=== PATIENT | male | born 1990 | race Caucasian/White ===

== ENCOUNTER 2018-08-29 16:35 | Inpatient (IN) | payer OTHER ==
[2018-08-29 18:59] VITALS: BMI 17.4
[2018-08-29] MEDS ORDERED: MELATONIN 5 MG TABLETS PO PRN (22:00)
--- NOTE | 2018-08-29 22:38 | HP ---
Admission [facility] Chief Complaint: Seeking admission to Rehab. Allergies/Adverse Reactions: Allergies Allergy/AdvReac Type Severity Reaction Status Date / Time No Known Allergies Allergy Verified 08/29/18 20:11 History of Present Illness: 28 years old male with a history of heroin dependence is seeking admission to Rehab. Patient is court mandated by City Reception Manager [facility] Kaity Wheeler for a minimum of 28 days addiction treatment. He reports history of gastritis, asthma, depression and anxiety. He denies suicide attempt or suicidal ideation at this time. Patient reports that he was on Buprenorphine before he went to longterm for 2 months. Patient reports that after Rehab. he will reestablish therapy at [facility]. Exam Limitations: No Limitations - Ebola screening Have you traveled outside of the country in the last 21 days: No (N) Have you had contact with anyone from an Ebola affected area: No Have you been sick,other than usual withdrawal symptoms: No Do you have a fever: No - Review of Systems Constitutional: No Symptoms Reported EENT: reports: No Symptoms Reported Respiratory: reports: No Symptoms reported Cardiac: reports: No Symptoms Reported GI: reports: No Symptoms Reported : reports: No Symptoms Reported Musculoskeletal: reports: No Symptoms Reported Integumentary: reports: No Symptoms Reported Neuro: reports: No Symptoms reported Endocrine: reports: No Symptoms Reported Hematology: reports: No Symptoms Reported Psychiatric: reports: No Sypmtoms Reported, Mood/Affect Appropiate, Orientated x3 Other Systems: Reviewed and Negative Patient History - Patient Medical History Hx Anemia: No Hx Asthma: Yes (Not on medication) Hx Chronic Obstructive Pulmonary Disease (COPD): No Hx Cancer: No Hx Cardiac Disorders: No Hx Congestive Heart Failure: No Hx Hypertension: No Hx Hypercholesterolemia: No Hx Pacemaker: No HX Cerebrovascular Accident: No Hx Seizures: No Hx Dementia: No Hx Diabetes: No Hx Gastrointestinal Disorders: Yes (Gastritis - Not on medication) Hx Liver Disease: No Hx Genitourinary Disorders: No Hx Sexually Transmitted Disorders: No Hx Renal Disease (ESRD): No Hx Thyroid Disease: No Hx Human Immunodeficiency Virus (HIV): No (NEGATIVE 2018) Hx Hepatitis C: No Hx Depression: Yes (Not on medicvation) Hx Suicide Attempt: No Hx Bipolar Disorder: Yes Hx Schizophrenia: No Other Medical History: Anxiety - Not on medication - Patient Surgical History Past Surgical History: Yes Hx Neurologic Surgery: No Hx Cataract Extraction: No Hx Cardiac Surgery: No Hx Lung Surgery: No Hx Breast Surgery: No Hx Breast Biopsy: No Hx Abdominal Surgery: No Hx Appendectomy: Yes ([place] 12/2013) Hx Cholecystectomy: No Hx Genitourinary Surgery: No Hx Orthopedic Surgery: No Anesthesia Reaction: No - PPD History Documented Results: Negative w/proof Implanted On Prior [facility] Admission?: Yes Date: 07/26/16 Results: 0 MM PPD to be Administered?: Yes - Reproductive History Patient is a Female of Child Bearing Age (11 -55 yrs old): No (Male) - Smoking Cessation Smoking history: Current every day smoker Have you smoked in the past 12 months: Yes Aproximately how many cigarettes per day: 8 Cigars Per Day: 0 Hx Chewing Tobacco Use: No Initiated information on smoking cessation: Yes 'Breaking Loose' booklet given: 08/25/18 - Substance & Tx. History Hx Alcohol Use: No Hx Substance Use: Yes Substance Use Type: Heroin Hx Substance Use Treatment: Yes ([facility]) - Substances Abused Heroin Route: Injection Frequency: Daily Amount used: 10bags Age of first use: 19 Date of Last Use: 06/07/18 Family Disease History - Family Disease History Family Disease History: Respiratory: Grandparent, Other: Father (living, arthritis), Mother (living, thyroid) Admission Physical Exam [facility] - Vital Signs Vital Signs: Vital Signs - 24 hr 08/29/18 18:57 Temperature 97.7 F Pulse Rate 96 H Respiratory 18 Rate Blood Pressure 140/98 - Physical General Appearance: Yes: Within Normal Limits HEENTM: Yes: EOMI, Normal ENT Inspection, Normocephalic, Normal Voice, EL Respiratory: Yes: Lungs Clear, Normal Breath Sounds, No Respiratory Distress Neck: Yes: Supple Breast: Yes: Breast Exam Deferred Cardiology: Yes: Regular Rhythm, Regular Rate Abdominal: Yes: Normal Bowel Sounds Genitourinary: Yes: Within Normal Limits Back: Yes: Normal Inspection Musculoskeletal: Yes: Within Normal Limits Extremities: Yes: Normal Inspection Neurological: Yes: consultative sales associate II-XII NML intact, Alert, Normal Mood/Affect Integumentary: Yes: Warm Lymphatic: Yes: Within Normal Limits - Diagnostic (1) Anxiety Current Visit: Yes Status: Chronic (2) Gastritis Current Visit: Yes Status: Chronic (3) Depression Current Visit: Yes Status: Chronic Qualifiers: Depression Type: dysthymia Qualified Code(s): F34.1 - Dysthymic disorder (4) Nicotine dependence Current Visit: Yes Status: Chronic Qualifiers: Nicotine product type: cigarettes Substance use status: uncomplicated Qualified Code(s): F17.210 - Nicotine dependence, cigarettes, uncomplicated Comment: counseled nicotine cessation - not ready but is trying to cut down (5) Opioid dependence Current Visit: Yes Status: Chronic Qualifiers: Substance use status: uncomplicated Qualified Code(s): F11.20 - Opioid dependence, uncomplicated Comment: cont suboxone 8mg bid, needs labwork, to continue drug court and [facility], (6) Asthma Current Visit: Yes Status: Chronic Cleared for Admission [facility] - Detox or Rehab [facility] Level of Care: Observation Bed Claeared for Rehab Admission: Yes [facility] Breath Alcohol Content Breath Alcohol Content: 0 Urine Drug Screen - Results Drug Screen Negative: Yes Inpatient Rehab Admission - Initial Determination Are CD services needed?: Yes Free of communicable disease: Yes Not in need of hospitalization: Yes - Rehab Admission Criteria Previous failed treatment: Yes Poor recovery environment: Yes Comorbidities: Yes Lacks judgement: No Patient is meeting Inpatient Rehab admission criteria:: Yes
[2018-08-29] MEDS ORDERED: MENTHOL/PHENOL 1 EACH UD MM PRN (22:50)
[2018-08-29] MEDS ORDERED: NICOTINE POLACRILEX 2 MG GUM BC PRN (22:50)
[2018-08-29] MEDS ORDERED: ACETAMINOPHEN 325 MG TABLET (FP) PO PRN (22:50)
[2018-08-29] MEDS ORDERED: MAGNESIUM CITRATE 300 ML BOTTLE PO PRN (22:50)
[2018-08-29] MEDS ORDERED: LOPERAMIDE HCL 2 MG CAPSULE PO PRN (22:50)
[2018-08-29] MEDS ORDERED: P-EPHED 60MG/TRIPROLIDI 2.5MG TABLET PO PRN (22:50)
[2018-08-29] MEDS ORDERED: guaiFENesin/D-METHORPHAN HB 10 ML UNIT-DOSE CUPS PO PRN (22:50)
[2018-08-29] MEDS ORDERED: MAGNESIUM HYDROX 2400MG/30ML ORAL SUSPENSION 30 ML CUP PO PRN (22:50)
[2018-08-29] MEDS ORDERED: MAG HYDROX/AL HYDROX/SIMETH 30 ML UNIT-DOSE CUP PO PRN (22:50)
[2018-08-30] MEDS ORDERED: TUBERCULIN PPD 5 TU/0.1ML VIAL ID ONE (00:34)
[2018-08-30] MEDS: IBUPROFEN 400 MG TABLET (FP) PO PRN (06:06)
[2018-08-30] MEDS: NICOTINE 14 MG/24 HOURS TOPICAL PATCH TD SCH (09:38)
[2018-08-30] MEDS: PRENATAL VITAMINS W/ FOLIC ACID TABLET (FP) PO SCH (09:38)
[2018-08-30 10:24] LABS: HEMATOCRIT 47.2 % (35.4-49); HEMOGLOBIN 15.5 GM/dL (11.7-16.9); MCH 31.6 pg (25.7-33.7); MCHC 32.9 g/dl (32.0-35.9); MEAN CELL VOLUME 95.9 fl (80-96); PLATELET COUNT 226 K/MM3 (134-434); RBC 4.92 M/mm3 (4.00-5.60); RDW 14.9 % (11.9-15.9); WHITE BLOOD COUNT 10.4 K/mm3 (4.0-10.0)
[2018-08-30 10:32] LABS: URINE APPEARANCE CLEAR; URINE BILIRUBIN NEGATIVE (<2.0 mg/dL); URINE COLOR YELLOW; URINE GLUCOSE (UA) NEGATIVE (NEGATIVE); URINE KETONE NEGATIVE (NEGATIVE); URINE LEUK ESTERASE NEGATIVE (NEGATIVE); URINE NITRITE NEGATIVE (NEGATIVE); URINE PROTEIN NEGATIVE (NEGATIVE); URINE UROBILINOGEN NEGATIVE mg/dL (0.2-1.0)
[2018-08-30 11:27] LABS: ALBUMIN 4.5 g/dl (3.4-5.0); ALK PHOS 152 U/L (45-117); ANION GAP 10 MMOL/L (8-16); BILIRUBIN,TOTAL 0.8 mg/dL (0.2-1); BLOOD UREA NITROGEN 9 mg/dL (7-18); CALCIUM 9.1 mg/dL (8.5-10.1); CHLORIDE 107 mmol/L (98-107); CO2 28 mmol/L (21-32); CREATININE 0.8 mg/dL (0.55-1.3); GLUCOSE,RANDOM 62 mg/dL (74-106); POTASSIUM 4.3 mmol/L (3.5-5.1); SGOT/AST 23 U/L (15-37); SGPT/ALT 39 U/L (13-61); SODIUM 145 mmol/L (136-145); TOT PROT 7.8 g/dl (6.4-8.2)
--- NOTE | 2018-08-30 12:59 | EKG ---
Test Reason : Blood Pressure : / mmHG Vent. Rate : 126 BPM Atrial Rate : 126 BPM P-R Int : 136 ms QRS Dur : 084 ms QT Int : 300 ms P-R-T Axes : 075 076 043 degrees QTc Int : 434 ms SINUS TACHYCARDIA OTHERWISE NORMAL ECG Confirmed by MD GEENA, ANDRE ([id number]) on 08/30/2018 12:58:53 PM Referred By: Confirmed By:ANDRE SEAY MD
--- NOTE | 2018-08-30 13:59 | HP ---
Psychiatrist Admission - Data Date of interview: 08/30/18 Admission source: Court mandated Identifying data: This is the second [facility] Inpatient rehabilitation admission martin this 28 years old single male, unemployed, domiciled living with his girlfriend Medical History: Significant for bronchial asthma, gastritis and history of appendectomy in 2013. Smokes 8 cigarettes daily Psychiatric History: Reports being diagnosed with ADHD and OCD as child and was prescribed Ritalin in the past. Reports that he was diagnosed with Bipolar Disorder in Aug 2014 and was prescribed Seroquel 300 mg po HS and Trazadone 150 mg po HS. Denies previous psychiatric hospitalization or suicidal attempt. Reports that while incarcerated at [facility] in [place] for the past 45 days, he saw a psychiatrist and he was prescribed Remeron 30 mhg po HS and Buspar 15 mg po BID. Told copy writer that he was released yesterday and brought to this facility for inpatient rehab. At present, reports feeling anxious and sleeping poorly Physical/Sexual Abuse/Trauma History: Denies history of emotional, physical or sexual abuse as well as DV relationship. No service Additional Comment: Reports history of mutiple previous arrests. Presently in drug court Vital Signs: Vital Signs - 24 hr 08/29/18 08/30/18 08/30/18 18:57 03:30 06:37 Temperature 97.7 F 97.6 F Pulse Rate 96 H 78 Respiratory 18 18 18 Rate Blood Pressure 140/98 115/75 Allergies/Adverse Reactions: Allergies Allergy/AdvReac Type Severity Reaction Status Date / Time No Known Allergies Allergy Verified 08/29/18 20:11 Date of last physical exam: 08/29/18 Concur with the findings of this exam: Yes - Substance Abuse/Tx History Hx Alcohol Use: No Hx Substance Use: Yes Substance Use Type: Heroin (Started using heroin at age 19, consumes 10 bags daily. Last used on 06/07/18) Hx Substance Use Treatment: Yes (3 previous inpt detox & one inpt rehab admissions @ [facility]) Mental Status Exam - Mental Status Exam Alert and Oriented to: Time, Place, Person Cognitive Function: Fair Patient Appearance: Well Groomed Mood: Anxious Affect: Appropriate Patient Behavior: Cooperative Speech Pattern: Clear Voice Loudness: Normal Thought Process: Intact, Goal Oriented Hallucinations: Denies Suicidal Ideation: Denies Homicidal Ideation: Denies Insight/Judgement: Fair Sleep: Poorly Appetite: Good Muscle strength/Tone: Normal Gait/Station: Normal Psychiatric Findings - Problem List ([place] 1, 2,3) (1) ADHD (attention deficit hyperactivity disorder) Current Visit: Yes Status: Chronic (2) Mood disorder Current Visit: Yes Status: Chronic (3) Bipolar disorder Current Visit: Yes Status: Ruled-out (4) Substance-induced anxiety disorder Current Visit: Yes Status: Acute (5) Substance-induced sleep disorder Current Visit: Yes Status: Acute (6) Opioid dependence Current Visit: Yes Status: Acute (7) Nicotine dependence Current Visit: Yes Status: Chronic Qualifiers: Nicotine product type: cigarettes Substance use status: uncomplicated Qualified Code(s): F17.210 - Nicotine dependence, cigarettes, uncomplicated Comment: counseled nicotine cessation - not ready but is trying to cut down (8) Asthma Current Visit: Yes Status: Chronic (9) Gastritis Current Visit: Yes Status: Chronic - Initial Treatment Plan Initial Treatment Plan: 1) Continue Mirtazapine 30 mg po HS and Buspar 15 mg po BID. 2) Monitor progress
[2018-08-30] MEDS: THIAMINE HCL 100 MG TABLET (FP) PO SCH (21:07)
[2018-08-30] MEDS: busPIRone HCL 5 MG TABLET PO SCH (21:07)
[2018-08-30] MEDS: MIRTAZAPINE 30 MG TABLET (FP) PO SCH (21:07)
[2018-08-31] MEDS: busPIRone HCL 5 MG TABLET PO SCH ×2 (09:53→21:09)
[2018-08-31] MEDS: PRENATAL VITAMINS W/ FOLIC ACID TABLET (FP) PO SCH (09:53)
[2018-08-31] MEDS: NICOTINE 14 MG/24 HOURS TOPICAL PATCH TD SCH (09:54)
--- NOTE | 2018-08-31 10:18 | PN ---
[facility] COWS - Scale Resting Pulse: 0= IN 80 or Below Sweatin= No chills or Flushing Restless Observation: 3= Extraneous Movement Pupil Size: 0= Normal to Room Light Bone or Joint Aches: 0= None Runny Nose/ Eye Tearin= None GI Upset > 30mins: 0= None Tremor Observation of Outstretched Hands: 2= Slight Tremor Visible Yawning Observation: 1= 1-2x During Session Anxiety or Irritability: 2=Irritable/Anxious Goose Flesh Skin: 0=Smooth Skin COWS Score: 8 BHS Progress Note (SOAP) Subjective: PT WAS ADMITTED ON 08/29/18, BROUGHT IN BY MR RODRIGUEZ AND MANDATED BY [facility]. PT WAS RECENTLY RELEASED FROM PRISON FROM JUL 22 - AUGUST 29, 2018. PT WAS PREVIOUSLY ON SUBOXONE PROGRAM AT [facility], LAST IN June. PT STATES HE WANTS TO GO BACK ON SUBOXONE AND THAT HE IS RECOMMENDED TO BE ON IT BY THE COURT. PT WILL BE GOING BACK TO [facility] FOR AFTER CARE AFTER REHAB TREATMENT PER PATIENT'S COUNSELOR, MS ROACHNNE. DISCUSSED WITH Carmenza GALVAN, PhD,SPECIAL TECHNICAL OPERATIONS OFFICER AT [facility] WHO WILL BE PRESCRIBER FOR THIS PATIENT. PT STATES HE WAS ON SUBOXONE 8MG/2MG SL 1 FILM TWICE DAILY. MEANWHILE, PT REPORTS INCREASED CRAVINGS AND STATES "I JUST WANT TO GO USE". ALERT O X 3. OOB AND IN NAD. Objective: 08/31/18 10:18 Vital Signs 08/31/18 08/31/18 03:30 06:54 Respiratory 18 18 Rate EKG:NSR NORMAL ECG Assessment: 08/31/18 10:19 IMPRESSION:MAT Plan: START SUBOXONE 2MG/0.5 MG SL NOW. RE-EVALUATE FOR ADJUSTMENT OF DOSE.
[2018-08-31] MEDS ORDERED: BUPRENORPHINE/NALOXONE 2 MG/0.5 MG FILM PACKET SL ONE (10:23)
--- NOTE | 2018-08-31 15:14 | EKG ---
Test Reason : Blood Pressure : / mmHG Vent. Rate : 079 BPM Atrial Rate : 079 BPM P-R Int : 132 ms QRS Dur : 088 ms QT Int : 368 ms P-R-T Axes : 074 066 056 degrees QTc Int : 421 ms NORMAL SINUS RHYTHM NORMAL ECG WHEN COMPARED WITH ECG OF 29-AUG-2018 23:45, VENT. RATE HAS DECREASED BY 47 BPM Confirmed by ALISE VAZQUEZ MD ([id number]) on 08/31/2018 3:14:39 PM Referred By: Confirmed By:ALISE VAZQUEZ MD
[2018-08-31] MEDS: IBUPROFEN 400 MG TABLET (FP) PO PRN (18:23)
[2018-08-31] MEDS: THIAMINE HCL 100 MG TABLET (FP) PO SCH (21:08)
[2018-08-31] MEDS: MIRTAZAPINE 30 MG TABLET (FP) PO SCH (21:09)
[2018-09-01] MEDS: PRENATAL VITAMINS W/ FOLIC ACID TABLET (FP) PO SCH (09:45)
[2018-09-01] MEDS: busPIRone HCL 5 MG TABLET PO SCH ×2 (09:45→21:14)
[2018-09-01] MEDS: NICOTINE 14 MG/24 HOURS TOPICAL PATCH TD SCH (09:46)
--- NOTE | 2018-09-01 09:56 | PN ---
BHS COWS - Scale Resting Pulse: 0= [place] 80 or Below Sweatin= No chills or Flushing Restless Observation: 3= Extraneous Movement (at night) Pupil Size: 0= Normal to Room Light Bone or Joint Aches: 0= None Runny Nose/ Eye Tearin= None GI Upset > 30mins: 0= None Tremor Observation of Outstretched Hands: 1= Tremor [place], Not Seen Yawning Observation: 0= None Anxiety or Irritability: 1=Feels Anxious/Irritable Goose Flesh Skin: 0=Smooth Skin COWS Score: 5 BHS Progress Note (SOAP) Subjective: PT REPORTS HE FEELS MUCH BETTER TODAT(SEE COWS SCORE). WANTS TO BE KEPT ON CURRENT DOSE TILL AFTER THE WEEKEND BUT WILL INFORM STAFF OF SYMPTOMS THAT WILL NECESSITATE INCREASED DOSE. PT HAS BEEN INSTRUCTED ON SAME. Objective: 09/01/18 09:56 Vital Signs - 24 hr 09/01/18 09/01/18 09/01/18 00:30 03:30 06:56 Temperature Pulse Rate Respiratory 18 18 18 Rate Blood Pressure 09/01/18 08:58 Temperature 97.6 F Pulse Rate 78 Respiratory 17 Rate Blood Pressure 112/82 Assessment: 09/01/18 09:56 MAT Plan: CONTINUE 2MG AND RE-EVALUATE PT FOR DOSE INCREASE.
[2018-09-01] MEDS: BUPRENORPHINE/NALOXONE 2 MG/0.5 MG FILM PACKET SL SCH (10:14)
[2018-09-01] MEDS: MIRTAZAPINE 30 MG TABLET (FP) PO SCH (21:13)
[2018-09-01] MEDS: THIAMINE HCL 100 MG TABLET (FP) PO SCH (21:13)
[2018-09-01] MEDS: SELENIUM SULFIDE 2.5% LOTION 4 OZ. TP SCH (23:16)
[2018-09-02] MEDS: BUPRENORPHINE/NALOXONE 2 MG/0.5 MG FILM PACKET SL SCH (09:44)
[2018-09-02] MEDS: busPIRone HCL 5 MG TABLET PO SCH ×2 (09:44→21:32)
[2018-09-02] MEDS: PRENATAL VITAMINS W/ FOLIC ACID TABLET (FP) PO SCH (09:44)
[2018-09-02] MEDS: NICOTINE 14 MG/24 HOURS TOPICAL PATCH TD SCH (09:45)
[2018-09-02] MEDS: SELENIUM SULFIDE 2.5% LOTION 4 OZ. TP SCH (09:45)
--- NOTE | 2018-09-02 13:54 | PN ---
BHS Progress Note Note: PT REPORTS DISCOMFORT AND HAS CRAVINGS OF URGE TO USE. HE IS REQUESTING FOR AND INCREASE IN SUBOXONE DOSE. CURRENTLY ON 2MG. Vital Signs - 24 hr 09/02/18 09/02/18 09/02/18 00:30 03:30 06:46 Temperature 98.0 F Pulse Rate 76 Respiratory 19 18 18 Rate Blood Pressure 104/74 PLAN:WILL INCREASE TO 4MG SL DAILY.
[2018-09-02] MEDS ORDERED: BUPRENORPHINE/NALOXONE 2 MG/0.5 MG FILM PACKET SL SCH (13:55)
[2018-09-02] MEDS ORDERED: BUPRENORPHINE/NALOXONE 2 MG/0.5 MG FILM PACKET SL ONE (14:00)
[2018-09-02] MEDS: THIAMINE HCL 100 MG TABLET (FP) PO SCH (21:32)
[2018-09-02] MEDS: MIRTAZAPINE 30 MG TABLET (FP) PO SCH (21:32)
[2018-09-03] MEDS: BUPRENORPHINE/NALOXONE 2 MG/0.5 MG FILM PACKET SL SCH (09:44)
[2018-09-03] MEDS: PRENATAL VITAMINS W/ FOLIC ACID TABLET (FP) PO SCH (09:44)
[2018-09-03] MEDS: SELENIUM SULFIDE 2.5% LOTION 4 OZ. TP SCH (09:44)
[2018-09-03] MEDS: busPIRone HCL 5 MG TABLET PO SCH ×2 (09:44→21:08)
[2018-09-03] MEDS: NICOTINE 14 MG/24 HOURS TOPICAL PATCH TD SCH (09:46)
[2018-09-03] MEDS: MIRTAZAPINE 30 MG TABLET (FP) PO SCH (21:08)
[2018-09-03] MEDS: THIAMINE HCL 100 MG TABLET (FP) PO SCH (21:08)
[2018-09-04] MEDS: PRENATAL VITAMINS W/ FOLIC ACID TABLET (FP) PO SCH (09:25)
[2018-09-04] MEDS: NICOTINE 14 MG/24 HOURS TOPICAL PATCH TD SCH (09:25)
[2018-09-04] MEDS: BUPRENORPHINE/NALOXONE 2 MG/0.5 MG FILM PACKET SL SCH (09:25)
[2018-09-04] MEDS: busPIRone HCL 5 MG TABLET PO SCH ×2 (09:25→21:15)
[2018-09-04] MEDS: SELENIUM SULFIDE 2.5% LOTION 4 OZ. TP SCH (09:25)
[2018-09-04] MEDS: THIAMINE HCL 100 MG TABLET (FP) PO SCH (21:14)
[2018-09-04] MEDS: MIRTAZAPINE 30 MG TABLET (FP) PO SCH (21:15)
[2018-09-05] MEDS: BUPRENORPHINE/NALOXONE 2 MG/0.5 MG FILM PACKET SL SCH (10:08)
[2018-09-05] MEDS: busPIRone HCL 5 MG TABLET PO SCH ×2 (10:08→21:15)
[2018-09-05] MEDS: PRENATAL VITAMINS W/ FOLIC ACID TABLET (FP) PO SCH (10:08)
[2018-09-05] MEDS: SELENIUM SULFIDE 2.5% LOTION 4 OZ. TP SCH (10:09)
[2018-09-05] MEDS: NICOTINE 14 MG/24 HOURS TOPICAL PATCH TD SCH (10:09)
[2018-09-05] MEDS: MIRTAZAPINE 30 MG TABLET (FP) PO SCH (21:15)
[2018-09-05] MEDS: THIAMINE HCL 100 MG TABLET (FP) PO SCH (21:15)
[2018-09-06] MEDS: busPIRone HCL 5 MG TABLET PO SCH ×2 (10:04→21:07)
[2018-09-06] MEDS: NICOTINE 14 MG/24 HOURS TOPICAL PATCH TD SCH (10:04)
[2018-09-06] MEDS: BUPRENORPHINE/NALOXONE 2 MG/0.5 MG FILM PACKET SL SCH (10:04)
[2018-09-06] MEDS: PRENATAL VITAMINS W/ FOLIC ACID TABLET (FP) PO SCH (10:04)
[2018-09-06] MEDS: SELENIUM SULFIDE 2.5% LOTION 4 OZ. TP SCH (10:05)
[2018-09-06] MEDS: MIRTAZAPINE 30 MG TABLET (FP) PO SCH (21:06)
[2018-09-06] MEDS: THIAMINE HCL 100 MG TABLET (FP) PO SCH (21:06)
[2018-09-07] MEDS: BUPRENORPHINE/NALOXONE 2 MG/0.5 MG FILM PACKET SL SCH (09:51)
[2018-09-07] MEDS: SELENIUM SULFIDE 2.5% LOTION 4 OZ. TP SCH (09:51)
[2018-09-07] MEDS: busPIRone HCL 5 MG TABLET PO SCH ×2 (09:51→21:13)
[2018-09-07] MEDS: PRENATAL VITAMINS W/ FOLIC ACID TABLET (FP) PO SCH (09:51)
[2018-09-07] MEDS: NICOTINE 14 MG/24 HOURS TOPICAL PATCH TD SCH (09:51)
[2018-09-07] MEDS: THIAMINE HCL 100 MG TABLET (FP) PO SCH (21:12)
[2018-09-07] MEDS: MIRTAZAPINE 30 MG TABLET (FP) PO SCH (21:13)
[2018-09-08] MEDS: PRENATAL VITAMINS W/ FOLIC ACID TABLET (FP) PO SCH (10:06)
[2018-09-08] MEDS: busPIRone HCL 5 MG TABLET PO SCH ×2 (10:06→21:07)
[2018-09-08] MEDS: SELENIUM SULFIDE 2.5% LOTION 4 OZ. TP SCH (10:08)
[2018-09-08] MEDS ORDERED: BUPRENORPHINE/NALOXONE 2 MG/0.5 MG FILM PACKET SL SCH (10:45)
[2018-09-08] MEDS: NICOTINE 14 MG/24 HOURS TOPICAL PATCH TD SCH (11:07)
[2018-09-08] MEDS: MIRTAZAPINE 30 MG TABLET (FP) PO SCH (21:07)
[2018-09-08] MEDS: THIAMINE HCL 100 MG TABLET (FP) PO SCH (21:07)
--- NOTE | 2018-09-09 09:42 | PN ---
[facility] Progress Note Note: PT WAS SEEN TODAY AND HE REQUESTS HE WANTS A BUILD UP TO 8 MG. PT HAD BEEN ON 8MG/2MG 2 FILMS DAILY BEFORE COMING HERE TO REHAB. Vital Signs - 24 hr 09/09/18 09/09/18 09/09/18 00:30 03:30 07:59 Temperature 97.8 F Pulse Rate 84 Respiratory 18 18 16 Rate Blood Pressure 112/71 Laboratory Tests 08/30/18 08/30/18 08/30/18 07:00 07:00 07:00 WBC 10.4 H RBC 4.92 Hgb 15.5 Hct 47.2 D MCV 95.9 MCH 31.6 MCHC 32.9 RDW 14.9 Plt Count 226 MPV 9.0 Sodium 145 Potassium 4.3 Chloride 107 Carbon Dioxide 28 Anion Gap 10 BUN 9 Creatinine 0.8 Creat Clearance w eGFR > 60 Random Glucose 62 L Calcium 9.1 Total Bilirubin 0.8 AST 23 ALT 39 Alkaline Phosphatase 152 H Total Protein 7.8 Albumin 4.5 Urine Color Urine Appearance Urine pH Ur Specific [place] Urine Protein Urine Glucose (UA) Urine Ketones Urine Blood Urine Nitrite Urine Bilirubin Urine Urobilinogen Ur Leukocyte Esterase RPR Titer Nonreactive 08/30/18 07:00 WBC RBC Hgb Hct MCV MCH MCHC RDW Plt Count MPV Sodium Potassium Chloride Carbon Dioxide Anion Gap BUN Creatinine Creat Clearance w eGFR Random Glucose Calcium Total Bilirubin AST ALT Alkaline Phosphatase Total Protein Albumin Urine Color Yellow Urine Appearance Clear Urine pH 6.0 Ur Specific [place] 1.024 Urine Protein Negative Urine Glucose (UA) Negative Urine Ketones Negative Urine Blood Negative Urine Nitrite Negative Urine Bilirubin Negative Urine Urobilinogen Negative Ur Leukocyte Esterase Negative RPR Titer NAD PLAN:INCREASE TO SUBOXONE 8 MG/2 MG SL DAILY.
[2018-09-09] MEDS: NICOTINE 14 MG/24 HOURS TOPICAL PATCH TD SCH (10:04)
[2018-09-09] MEDS: busPIRone HCL 5 MG TABLET PO SCH ×2 (10:04→21:07)
[2018-09-09] MEDS: PRENATAL VITAMINS W/ FOLIC ACID TABLET (FP) PO SCH (10:04)
[2018-09-09] MEDS: BUPRENORPHINE/NALOXONE 8 MG/2 MG FILM PACKET SL SCH (10:26)
[2018-09-09] MEDS: THIAMINE HCL 100 MG TABLET (FP) PO SCH (21:07)
[2018-09-09] MEDS: MIRTAZAPINE 30 MG TABLET (FP) PO SCH (21:07)
[2018-09-10] MEDS: PRENATAL VITAMINS W/ FOLIC ACID TABLET (FP) PO SCH (09:25)
[2018-09-10] MEDS: busPIRone HCL 5 MG TABLET PO SCH ×2 (09:25→21:07)
[2018-09-10] MEDS: NICOTINE 14 MG/24 HOURS TOPICAL PATCH TD SCH (09:25)
[2018-09-10] MEDS: BUPRENORPHINE/NALOXONE 8 MG/2 MG FILM PACKET SL SCH (09:25)
[2018-09-10] MEDS: MIRTAZAPINE 30 MG TABLET (FP) PO SCH (21:07)
[2018-09-10] MEDS: THIAMINE HCL 100 MG TABLET (FP) PO SCH (21:07)
[2018-09-11] MEDS: busPIRone HCL 5 MG TABLET PO SCH ×2 (09:31→21:06)
[2018-09-11] MEDS: BUPRENORPHINE/NALOXONE 8 MG/2 MG FILM PACKET SL SCH (09:31)
[2018-09-11] MEDS: PRENATAL VITAMINS W/ FOLIC ACID TABLET (FP) PO SCH (09:31)
[2018-09-11] MEDS: NICOTINE 14 MG/24 HOURS TOPICAL PATCH TD SCH (09:31)
[2018-09-11] MEDS: SELENIUM SULFIDE 2.5% LOTION 4 OZ. TP SCH (15:29)
[2018-09-11] MEDS: MIRTAZAPINE 30 MG TABLET (FP) PO SCH (21:06)
[2018-09-11] MEDS: THIAMINE HCL 100 MG TABLET (FP) PO SCH (21:06)
[2018-09-12] MEDS: PRENATAL VITAMINS W/ FOLIC ACID TABLET (FP) PO SCH (09:57)
[2018-09-12] MEDS: busPIRone HCL 5 MG TABLET PO SCH ×2 (09:57→21:02)
[2018-09-12] MEDS: BUPRENORPHINE/NALOXONE 8 MG/2 MG FILM PACKET SL SCH (09:57)
[2018-09-12] MEDS: SELENIUM SULFIDE 2.5% LOTION 4 OZ. TP SCH (09:58)
[2018-09-12] MEDS: NICOTINE 14 MG/24 HOURS TOPICAL PATCH TD SCH (09:58)
[2018-09-12] MEDS: MIRTAZAPINE 30 MG TABLET (FP) PO SCH (21:02)
[2018-09-12] MEDS: THIAMINE HCL 100 MG TABLET (FP) PO SCH (21:02)
[2018-09-13] MEDS ORDERED: PT OWN MED DRAWER 7, Y5N ONE (08:47)
[2018-09-13] MEDS: busPIRone HCL 5 MG TABLET PO SCH ×2 (10:05→21:07)
[2018-09-13] MEDS: NICOTINE 14 MG/24 HOURS TOPICAL PATCH TD SCH (10:05)
[2018-09-13] MEDS: SELENIUM SULFIDE 2.5% LOTION 4 OZ. TP SCH (10:05)
[2018-09-13] MEDS: PRENATAL VITAMINS W/ FOLIC ACID TABLET (FP) PO SCH (10:05)
[2018-09-13] MEDS: BUPRENORPHINE/NALOXONE 8 MG/2 MG FILM PACKET SL SCH (10:06)
[2018-09-13] MEDS: MIRTAZAPINE 30 MG TABLET (FP) PO SCH (21:07)
[2018-09-13] MEDS: THIAMINE HCL 100 MG TABLET (FP) PO SCH (21:07)
[2018-09-14] MEDS: PRENATAL VITAMINS W/ FOLIC ACID TABLET (FP) PO SCH (09:48)
[2018-09-14] MEDS: SELENIUM SULFIDE 2.5% LOTION 4 OZ. TP SCH (09:48)
[2018-09-14] MEDS: busPIRone HCL 5 MG TABLET PO SCH ×2 (09:48→21:10)
[2018-09-14] MEDS: BUPRENORPHINE/NALOXONE 8 MG/2 MG FILM PACKET SL SCH (09:48)
[2018-09-14] MEDS: NICOTINE 14 MG/24 HOURS TOPICAL PATCH TD SCH (10:52)
--- NOTE | 2018-09-14 11:22 | PN ---
B[facility] Progress Note Note: Pt requesting tinactin cream for athletes feet- done
[2018-09-14] MEDS: THIAMINE HCL 100 MG TABLET (FP) PO SCH (21:10)
[2018-09-14] MEDS: MIRTAZAPINE 30 MG TABLET (FP) PO SCH (21:11)
[2018-09-14] MEDS: TOLNAFTATE 1% CREAM 15 GM TUBE TP SCH (21:12)
[2018-09-15] MEDS: PRENATAL VITAMINS W/ FOLIC ACID TABLET (FP) PO SCH (10:02)
[2018-09-15] MEDS: busPIRone HCL 5 MG TABLET PO SCH ×2 (10:02→21:07)
[2018-09-15] MEDS: TOLNAFTATE 1% CREAM 15 GM TUBE TP SCH ×2 (10:02→21:08)
[2018-09-15] MEDS: BUPRENORPHINE/NALOXONE 8 MG/2 MG FILM PACKET SL SCH (10:02)
[2018-09-15] MEDS: NICOTINE 14 MG/24 HOURS TOPICAL PATCH TD SCH (10:02)
[2018-09-15] MEDS: SELENIUM SULFIDE 2.5% LOTION 4 OZ. TP SCH (10:03)
[2018-09-15] MEDS: MIRTAZAPINE 30 MG TABLET (FP) PO SCH (21:07)
[2018-09-15] MEDS: THIAMINE HCL 100 MG TABLET (FP) PO SCH (21:07)
[2018-09-16] MEDS: busPIRone HCL 5 MG TABLET PO SCH ×2 (09:39→21:06)
[2018-09-16] MEDS: PRENATAL VITAMINS W/ FOLIC ACID TABLET (FP) PO SCH (09:39)
[2018-09-16] MEDS: SELENIUM SULFIDE 2.5% LOTION 4 OZ. TP SCH (09:40)
[2018-09-16] MEDS: NICOTINE 14 MG/24 HOURS TOPICAL PATCH TD SCH (09:40)
[2018-09-16] MEDS: TOLNAFTATE 1% CREAM 15 GM TUBE TP SCH ×2 (09:40→21:06)
[2018-09-16] MEDS: BUPRENORPHINE/NALOXONE 8 MG/2 MG FILM PACKET SL SCH (12:04)
[2018-09-16] MEDS: THIAMINE HCL 100 MG TABLET (FP) PO SCH (21:06)
[2018-09-16] MEDS: MIRTAZAPINE 30 MG TABLET (FP) PO SCH (21:06)
[2018-09-17] MEDS: PRENATAL VITAMINS W/ FOLIC ACID TABLET (FP) PO SCH (09:44)
[2018-09-17] MEDS: BUPRENORPHINE/NALOXONE 8 MG/2 MG FILM PACKET SL SCH (09:44)
[2018-09-17] MEDS: busPIRone HCL 5 MG TABLET PO SCH ×2 (09:44→21:07)
[2018-09-17] MEDS: TOLNAFTATE 1% CREAM 15 GM TUBE TP SCH ×2 (09:45→21:07)
[2018-09-17] MEDS: SELENIUM SULFIDE 2.5% LOTION 4 OZ. TP SCH (09:45)
[2018-09-17] MEDS: NICOTINE 14 MG/24 HOURS TOPICAL PATCH TD SCH (09:45)
[2018-09-17] MEDS: THIAMINE HCL 100 MG TABLET (FP) PO SCH (21:06)
[2018-09-17] MEDS: MIRTAZAPINE 30 MG TABLET (FP) PO SCH (21:07)
[2018-09-18] MEDS: PRENATAL VITAMINS W/ FOLIC ACID TABLET (FP) PO SCH (09:24)
[2018-09-18] MEDS: busPIRone HCL 5 MG TABLET PO SCH ×2 (09:24→21:14)
[2018-09-18] MEDS: TOLNAFTATE 1% CREAM 15 GM TUBE TP SCH ×2 (09:24→21:18)
[2018-09-18] MEDS: SELENIUM SULFIDE 2.5% LOTION 4 OZ. TP SCH (09:24)
[2018-09-18] MEDS: BUPRENORPHINE/NALOXONE 8 MG/2 MG FILM PACKET SL SCH (09:25)
[2018-09-18] MEDS: NICOTINE 14 MG/24 HOURS TOPICAL PATCH TD SCH (09:25)
[2018-09-18] MEDS: MIRTAZAPINE 30 MG TABLET (FP) PO SCH (21:14)
[2018-09-18] MEDS: THIAMINE HCL 100 MG TABLET (FP) PO SCH (21:14)
[2018-09-19] MEDS: PRENATAL VITAMINS W/ FOLIC ACID TABLET (FP) PO SCH (10:01)
[2018-09-19] MEDS: busPIRone HCL 5 MG TABLET PO SCH ×2 (10:01→21:06)
[2018-09-19] MEDS: BUPRENORPHINE/NALOXONE 8 MG/2 MG FILM PACKET SL SCH (10:01)
[2018-09-19] MEDS: TOLNAFTATE 1% CREAM 15 GM TUBE TP SCH ×2 (10:03→21:07)
[2018-09-19] MEDS: NICOTINE 14 MG/24 HOURS TOPICAL PATCH TD SCH (10:03)
[2018-09-19] MEDS: MIRTAZAPINE 30 MG TABLET (FP) PO SCH (21:06)
[2018-09-19] MEDS: THIAMINE HCL 100 MG TABLET (FP) PO SCH (21:06)
[2018-09-20] MEDS: PRENATAL VITAMINS W/ FOLIC ACID TABLET (FP) PO SCH (09:58)
[2018-09-20] MEDS: busPIRone HCL 5 MG TABLET PO SCH ×2 (09:58→21:05)
[2018-09-20] MEDS: NICOTINE 14 MG/24 HOURS TOPICAL PATCH TD SCH (09:59)
[2018-09-20] MEDS: TOLNAFTATE 1% CREAM 15 GM TUBE TP SCH ×2 (09:59→21:05)
[2018-09-20] MEDS: BUPRENORPHINE/NALOXONE 8 MG/2 MG FILM PACKET SL SCH (09:59)
[2018-09-20] MEDS: SELENIUM SULFIDE 2.5% LOTION 4 OZ. TP SCH (15:07)
[2018-09-20] MEDS: MIRTAZAPINE 30 MG TABLET (FP) PO SCH (21:04)
[2018-09-20] MEDS: THIAMINE HCL 100 MG TABLET (FP) PO SCH (21:05)
[2018-09-21] MEDS: BUPRENORPHINE/NALOXONE 8 MG/2 MG FILM PACKET SL SCH (09:30)
[2018-09-21] MEDS: busPIRone HCL 5 MG TABLET PO SCH ×2 (09:30→21:02)
[2018-09-21] MEDS: PRENATAL VITAMINS W/ FOLIC ACID TABLET (FP) PO SCH (09:30)
[2018-09-21] MEDS: SELENIUM SULFIDE 2.5% LOTION 4 OZ. TP SCH (09:30)
[2018-09-21] MEDS: NICOTINE 14 MG/24 HOURS TOPICAL PATCH TD SCH (09:31)
[2018-09-21] MEDS: TOLNAFTATE 1% CREAM 15 GM TUBE TP SCH ×2 (09:32→21:03)
[2018-09-21] MEDS: MIRTAZAPINE 30 MG TABLET (FP) PO SCH (21:02)
[2018-09-21] MEDS: THIAMINE HCL 100 MG TABLET (FP) PO SCH (21:02)
[2018-09-22 06:41] VITALS: BP 110/67; PULSE 78; TEMP 98
[2018-09-22] MEDS: BUPRENORPHINE/NALOXONE 8 MG/2 MG FILM PACKET SL SCH (10:03)
[2018-09-22] MEDS: busPIRone HCL 5 MG TABLET PO SCH (10:03)
[2018-09-22] MEDS: PRENATAL VITAMINS W/ FOLIC ACID TABLET (FP) PO SCH (10:03)
[2018-09-22] MEDS: TOLNAFTATE 1% CREAM 15 GM TUBE TP SCH (10:04)
[2018-09-22] MEDS: SELENIUM SULFIDE 2.5% LOTION 4 OZ. TP SCH (10:04)
[2018-09-22] MEDS: NICOTINE 14 MG/24 HOURS TOPICAL PATCH TD SCH (11:05)
--- NOTE | 2018-09-22 11:44 | PN ---
Psychiatric Progress Note Vital Signs: Vital Signs Period Temp Pulse Resp BP Sys/Hong Pulse Ox Last 24 Hr 98.0 F 78 16-18 110/67 Date of Session: 09/22/18 Chief Complaint:: Discharge note HPI: Patient addressing Opios dependence comorbid with Nicotine dependence, mood disorder, ADHD, Substance-Induced Mood Disorder and Substance-Induced slep Disorder ROS: Asthma, Gastritis were medically managed Current Side Effect: No Lab tests ordered: Yes Lab tests reviewed: Yes Provider note:: Patient has completed this program today. He has met his treatment goals and will continue to address his issues in [facility] residential treatment at [facility]. Told internal communications writer that from his participation in this program, he has learned that he has to make a stop to his addiction in order to not going to [facility] and assume his responsibility as a father and . He responded well to Remeron 30 mg po HS and Buspar 5 mg po BID. Script for 30 days supply of these medications are electronically transmitted to [facility] at [address] [place] [address]. He is stable for discharge today Mental Status Exam - Mental Status Exam Alert and Oriented to: Time, Place, Person Cognitive Function: Fair Patient Appearance: Well Groomed Mood: Hopeful, Euthymic Affect: Appropriate Patient Behavior: Cooperative Speech Pattern: Clear Voice Loudness: Normal Thought Process: Intact Hallucinations: Denies Suicidal Ideation: Denies Homicidal Ideation: Denies Insight/Judgement: Fair Sleep: Fair Appetite: Good Muscle strength/Tone: Normal Gait/Station: Normal Psychiatric Treatment Plan - Problem List (7) Nicotine dependence Qualifiers: Nicotine product type: cigarettes Substance use status: uncomplicated Qualified Code(s): F17.210 - Nicotine dependence, cigarettes, uncomplicated Comment: counseled nicotine cessation - not ready but is trying to cut down (9) Gastritis Initial treatment plan: Patient is discharged today and referred to [facility] for half-way residential treatment
== END 2018-09-22 10:35 | disposition other institution (70) | DRG 772 ==
LOC: YASAS 16:35 → Y5N 20:50
PROVIDERS: ADMIT Psychiatry & Neurology Psychiatry; ATTEND Psychiatry & Neurology Psychiatry
PROC: HZ42ZZZ Group Counseling for Substance Abuse Treatment, Cognitive-Behavioral (ICD-10-PCS; principal; 2018-08-29)
DX: F11.20 Opioid dependence, uncomplicated (principal); F17.210 Nicotine dependence, cigarettes, uncomplicated; F19.280 Other psychoactive substance dependence with psychoactive substance-induced anxiety disorder; F19.282 Other psychoactive substance dependence with psychoactive substance-induced sleep disorder; F31.9 Bipolar disorder, unspecified; F39 Unspecified mood [affective] disorder; F90.9 Attention-deficit hyperactivity disorder, unspecified type; J45.909 Unspecified asthma, uncomplicated; K29.70 Gastritis, unspecified, without bleeding
CPT/HCPCS: 36415; 80053; 81003; 85027; 86593; 93005; 93010

== ENCOUNTER 2019-03-24 21:42 | Inpatient (IN) | payer SELFPAY ==
[2019-03-24 22:28] VITALS: BMI 21.4
--- NOTE | 2019-03-25 01:15 | HP ---
COWS - Scale Resting Pulse: 0= [place] 80 or Below Sweatin= Beads of Sweat on Face Restless Observation: 1= Difficult to Sit Still Pupil Size: 0= Normal to Room Light Bone or Joint Aches: 4=Acute Joint/Muscle Pain Runny Nose/ Eye Tearin= Runny Nose/Eyes GI Upset > 30mins: 3= Vomiting/Diarrhea Tremor Observation: 2= Slight Tremor Visible Yawning Observation: 1= 1-2x During Session Anxiety or Irritability: 2=Irritable/Anxious Goose Flesh Skin: 3=Piloerection COWS Score: 21 CIWA Score - Admission Criteria [facility] Guidelines: Admission for Medically Managed Detox: Requires at least one of the followin. CIWA greater than 12 2. Seizures within the past 24 hours 3. Delirium tremens within the past 24 hours 4. Hallucinations within the past 24 hours 5. Acute intervention needed for co occurring medical disorder 6. Acute intervention needed for co occurring psychiatric disorder 7. Severe withdrawal that cannot be handled at a lower level of care (continued vomiting, continued diarrhea, abnormal vital signs) requiring intravenous medication and/or fluids 8. Admission [facility] Chief Complaint: c/o withdrawal sx's Allergies/Adverse Reactions: Allergies Allergy/AdvReac Type Severity Reaction Status Date / Time No Known Allergies Allergy Verified 03/24/19 22:20 History of Present Illness: 28 Y.O. MALE WITH HX/O OPIOID DEPENDENCE HERE FOR DETOX. CLIENT IS SELF REFERRED HE IS KNOWN TO THIS PROGRAM. LAST HERE 2018, PRESENTS TODAY WITH MODERATE WITHDRAWAL SX'S. COWS 21. HE ALSO REPORTS ILLICIT SUBSTANCE ABUSE OF THX. UTOX + BZO BUT CLIENT DENIES USE. DENIES ANY SIGNIFICANT PERIOD OF CLEAN TIME, SI/HI, AVH. HOMELESS, UNEMPLOYED, DENIES LEGALS Exam Limitations: No Limitations - Ebola screening Have you traveled outside of the country in the last 21 days: No Have you had contact with anyone from an Ebola affected area: No Do you have a fever: No - Review of Systems Constitutional: Chills, Loss of Appetite, Malaise, Night Sweats EENT: reports: Nose Congestion, Other Respiratory: reports: Shortness of Breath Cardiac: reports: No Symptoms Reported GI: reports: Nausea, Poor Appetite, Poor Fluid Intake, Vomiting, Abdominal cramping : reports: No Symptoms Reported Musculoskeletal: reports: Back Pain, Joint Pain, Neck Pain Integumentary: reports: Sweating Neuro: reports: Headache, Tremors Endocrine: reports: No Symptoms Reported Hematology: reports: No Symptoms Reported Psychiatric: reports: Orientated x3, Agitated, Anxious, Depressed Other Systems: Reviewed and Negative Patient History - Patient Medical History Hx Anemia: No Hx Asthma: Yes (Not on medication) Hx Chronic Obstructive Pulmonary Disease (COPD): No Hx Cancer: No Hx Cardiac Disorders: No Hx Congestive Heart Failure: No Hx Hypertension: No Hx Hypercholesterolemia: No Hx Pacemaker: No HX Cerebrovascular Accident: No Hx Seizures: No Hx Dementia: No Hx Diabetes: No Hx Gastrointestinal Disorders: Yes (Gastritis - Not on medication) Hx Liver Disease: No Hx Genitourinary Disorders: No Hx Sexually Transmitted Disorders: No Hx Renal Disease (ESRD): No Hx Thyroid Disease: No Hx Human Immunodeficiency Virus (HIV): No (NEGATIVE 2018) Hx Hepatitis C: No Hx Depression: Yes (Not on medicvation) Hx Suicide Attempt: No Hx Bipolar Disorder: Yes Hx Schizophrenia: No Other Medical History: DENIES - Patient Surgical History Past Surgical History: Yes Hx Neurologic Surgery: No Hx Cataract Extraction: No Hx Cardiac Surgery: No Hx Lung Surgery: No Hx Breast Surgery: No Hx Breast Biopsy: No Hx Abdominal Surgery: No Hx Appendectomy: Yes ([place] 12/2013) Hx Cholecystectomy: No Hx Genitourinary Surgery: No Hx Section: No Hx Orthopedic Surgery: No Anesthesia Reaction: No - PPD History Previous Implant?: Yes Documented Results: Negative w/proof Implanted On Prior [facility] Admission?: Yes Date: 09/01/18 Results: 0 MM PPD to be Administered?: No - Smoking Cessation Smoking history: Current every day smoker Have you smoked in the past 12 months: Yes Aproximately how many cigarettes per day: 10 Cigars Per Day: 0 Hx Chewing Tobacco Use: No Initiated information on smoking cessation: Yes 'Breaking Loose' booklet given: 03/25/19 - Substance & Tx. History Hx Alcohol Use: No Hx Substance Use: Yes Substance Use Type: Heroin, Marijuana Hx Substance Use Treatment: Yes ([facility]) - Substances abused Heroin Substance route: Injection Frequency: Daily Amount used: 2 bundles/day Age of first use: 17 Date of last use: 03/24/19 Marijuana/Hashish Substance route: Oral Frequency: 1-2 times per week Amount used: 1 JOINT Age of first use: 14 Date of last use: 03/24/19 Family Disease History - Family Disease History Family Disease History: Respiratory: Grandparent, Other: Father (living, arthritis), Mother (living, thyroid) Admission Physical Exam [facility] - Vital Signs Vital Signs: Vital Signs - 24 hr 03/24/19 22:24 Pulse Rate 74 Respiratory 18 Rate Blood Pressure 116/72 - Physical General Appearance: Yes: Moderate Distress, Cachetic, Tremorous, Irritable, Sweating, Anxious HEENTM: Yes: EOMI, Normocephalic, Normal Voice, EL, Pharynx Normal, Nasal Congestion, Rhinorrhea Respiratory: Yes: Chest Non-Tender, Lungs Clear, Normal Breath Sounds, No Respiratory Distress, No Accessory Muscle Use, Other (productive cough with whitish sputum) Neck: Yes: No masses,lesions,Nodules, Supple, Trachea in good position Breast: Yes: Breast Exam Deferred Cardiology: Yes: Regular Rhythm, Regular Rate, S1, S2 Abdominal: Yes: Normal Bowel Sounds, Non Tender, Flat, Soft, Other (vomiting) Genitourinary: Yes: Within Normal Limits (no c/o) Back: Yes: Normal Inspection Musculoskeletal: Yes: full range of Motion, Gait Steady Extremities: Yes: Normal Capillary Refill, Normal Range of Motion, Non-Tender, Tremors Neurological: Yes: Fully Oriented, Alert, Motor Strength 5/5, Depressed Affect Integumentary: Yes: Moist, Other (scattered lesions all over chest wall and trunk from picking of skin. no s/sx of infection) - Diagnostic (1) Cannabis dependence, uncomplicated Current Visit: Yes Status: Acute (2) Substance-induced anxiety disorder Current Visit: Yes Status: Acute (3) Substance-induced sleep disorder Current Visit: Yes Status: Acute (4) ADHD (attention deficit hyperactivity disorder) Current Visit: Yes Status: Chronic (5) Asthma Current Visit: Yes Status: Chronic Qualifiers: Asthma severity: mild Asthma persistence: intermittent Asthma complication type: unspecified Qualified Code(s): J45.20 - Mild intermittent asthma, uncomplicated (6) Gastritis Current Visit: Yes Status: Chronic (7) Mood disorder Current Visit: Yes Status: Suspected (8) Nicotine dependence Current Visit: Yes Status: Chronic Qualifiers: Nicotine product type: cigarettes Substance use status: uncomplicated Qualified Code(s): F17.210 - Nicotine dependence, cigarettes, uncomplicated Comment: counseled nicotine cessation - not ready but is trying to cut down (9) Opioid dependence with withdrawal Current Visit: Yes Status: Acute Cleared for Admission [facility] - Detox or Rehab [facility] Level of Care: Medically Managed Detox Regimen/Protocol: Methadone Claeared for Rehab Admission: No Breathalyzer - Breathalyzer Breathalyzer: 0 Vital Signs - Vital Signs Vital signs refused: Yes Temperature: 97.8 F Temperature source: Oral Pulse Rate: 74 Respiratory Rate: 18 Blood Pressure: 116/72 Urine Drug Screen - Test Device Lot number: [id number] Expiration date: 12/07/19 - Control Is test valid?: Yes - Results Drug screen NEGATIVE: No Urine drug screen results: THC-Marijuana, FEN-Fentanyl, MOP-Opiates, OXY- Oxycodone, BZO-Benzodiazepines Inpatient Rehab Admission - Rehab Decision to Admit Inpatient rehab admission?: No
[2019-03-25] MEDS ORDERED: NICOTINE POLACRILEX 2 MG GUM BUC PRN (01:24)
[2019-03-25] MEDS ORDERED: P-EPHED 60MG/TRIPROLIDI 2.5MG TABLET PO PRN (01:24)
[2019-03-25] MEDS ORDERED: NALOXONE HCL 0.4 MG/ML VIAL IVPUSH PRN (01:24)
[2019-03-25] MEDS ORDERED: DICYCLOMINE HCL 10 MG CAPSULE PO PRN (01:24)
[2019-03-25] MEDS ORDERED: guaiFENesin 200 MG/10 ML 10 ML UNIT-DOSE CUPS PO PRN (01:24)
[2019-03-25] MEDS ORDERED: MAGNESIUM CITRATE 300 ML BOTTLE PO PRN (01:24)
[2019-03-25] MEDS ORDERED: MENTHOL/PHENOL 1 EACH UD MM PRN (01:24)
[2019-03-25] MEDS ORDERED: MAG HYDROX/AL HYDROX/SIMETH 30 ML UNIT-DOSE CUP PO PRN (01:24)
[2019-03-25] MEDS ORDERED: ACETAMINOPHEN 325 MG TABLET (FP) PO PRN ×2 (01:24)
[2019-03-25] MEDS ORDERED: MAGNESIUM HYDROX 2400MG/30ML ORAL SUSPENSION 30 ML CUP PO PRN (01:24)
[2019-03-25] MEDS ORDERED: METHADONE HCL 10 MG TABLET (FOR DETOX USE ONLY) PO ONE ×2 (01:24→10:00)
[2019-03-25] MEDS ORDERED: IBUPROFEN 400 MG TABLET (FP) PO PRN ×2 (01:24)
[2019-03-25] MEDS: TRIMETHOBENZAMIDE HCL 200MG/2ML INJ IM PRN ×3 (02:19→19:25)
[2019-03-25] MEDS: METHOCARBAMOL 500 MG TABLET PO PRN ×2 (03:09→19:18)
[2019-03-25] MEDS: clonazePAM 0.5 MG TABLET PO PRN ×2 (06:16→19:18)
[2019-03-25 10:01] LABS: HEMATOCRIT 48.1 % (35.4-49); HEMOGLOBIN 16.2 GM/dL (11.7-16.9); MCH 31.9 pg (25.7-33.7); MCHC 33.7 g/dl (32.0-35.9); MEAN CELL VOLUME 94.9 fl (80-96); MEAN PLT VOLUME 9.7 fl (7.5-11.1); PLATELET COUNT 237 K/MM3 (134-434); RBC 5.07 M/mm3 (4.00-5.60); RDW 13.6 % (11.9-15.9); WHITE BLOOD COUNT 11.5 K/mm3 (4.0-10.0)
[2019-03-25] MEDS ORDERED: METHADONE HCL 10 MG/1 ML (20ML VIAL) IM ONE ×2 (10:06→10:45)
[2019-03-25 10:08] LABS: ALBUMIN 4.3 g/dl (3.4-5.0); BILIRUBIN,TOTAL 1.4 mg/dL (0.2-1); CALCIUM 9.7 mg/dL (8.5-10.1); CREATININE 0.7 mg/dL (0.55-1.3); POTASSIUM 3.8 mmol/L (3.5-5.1)
--- NOTE | 2019-03-25 10:17 | PN ---
[facility]HS COWS - Scale Resting Pulse: 0= [place] 80 or Below Sweatin=Flushed/Facial Moisture Restless Observation: 3= Extraneous Movement Pupil Size: 0= Normal to Room Light Bone or Joint Aches: 4=Acute Joint/Muscle Pain Runny Nose/ Eye Tearin= Nasal Congestion GI Upset > 30mins: 5=Frequent Vomit/Diarrhea Tremor Observation of Outstretched Hands: 1= Tremor [place], Not Seen Yawning Observation: 1= 1-2x During Session Anxiety or Irritability: 2=Irritable/Anxious (SCREAMING AND MOANING; UNCOMFORTABLE.) Goose Flesh Skin: 3=Piloerection COWS Score: 22 BHS Progress Note (SOAP) Subjective: PT C/O SEVERE WITHDRAWAL SYMPTOMS-NAUSEA/VOMITING/DIARRHEA, ABDOMINAL CRAMPS, SWEATS/CHILLS,UNABLE TO HOLD FOOD DOWN, RESTLESS AND UNABLE TO SETTLE IN BED DUE TO SYMPTOMS. REPORTS LIQUID EMESIS. Objective: 03/25/19 12:19 Vital Signs 03/25/19 03/25/19 03/25/19 06:04 07:38 09:21 Temperature 97.7 F 97.8 F 97 F L Pulse Rate 71 74 76 Respiratory 18 18 18 Rate Blood Pressure 97/62 116/72 99/51 L Laboratory Tests 03/25/19 03/25/19 07:45 07:45 WBC 11.5 H RBC 5.07 Hgb 16.2 Hct 48.1 MCV 94.9 MCH 31.9 MCHC 33.7 RDW 13.6 Plt Count 237 MPV 9.7 Sodium 140 Potassium 3.8 Chloride 104 Carbon Dioxide 26 Anion Gap 10 BUN 13 Creatinine 0.7 Est GFR (CKD-EPI)AfAm 147.81 Est GFR (CKD-EPI)NonAf 127.53 Random Glucose 92 Calcium 9.7 Total Bilirubin 1.4 H AST 29 ALT 24 Alkaline Phosphatase 119 H Total Protein 8.0 Albumin 4.3 Assessment: 03/25/19 12:20 SEVERE WITHDRAWAL SX N/V/D WITH ABDOMINAL CRAMPS Plan: CONTINUE DETOX METHADONE 5 MG I.M X 1 GIVEN TIGAN I.M X 2 GIVEN SO FAR. ORDERED TIGAN 200 MG I.M Q6H PRN. RE-EVALUATE FOR PO METHADONE. GINGERALE TOLERATED ENSURE CLEAR TOLERATED. ADVANCE TO REGULAR ENSURE WHEN SYMPTOMS SUBSIDE.
[2019-03-25] MEDS: PRENATAL VITAMINS W/ FOLIC ACID TABLET (FP) PO SCH (11:02)
[2019-03-25] MEDS: NICOTINE 14 MG/24 HOURS TOPICAL PATCH TD SCH (11:03)
[2019-03-25] MEDS: BISMUTH SUBSALICYLATE 524 MG/30 ML UD PO PRN (15:20)
--- NOTE | 2019-03-25 17:36 | CONSULT ---
[facility] Psychiatric Consult - Data Date of interview: 03/25/19 Admission source: [facility] Identifying data: THREE visits at bedside. Patient is found, fully awake this time, lying in bed and resting comfortably. Mr Hollis declines to converse with the psychiatrist (pulled bedsheet over his face, rolled over in bed, turning his back to MD. Examination not possible at this time. Psychiatry- Liaison will reconsult if request renewed.
[2019-03-25] MEDS: MELATONIN 5 MG TABLETS PO PRN (23:00)
[2019-03-25] MEDS: hydrOXYzine PAMOATE 25 MG CAPSULE (FP) PO PRN (23:00)
[2019-03-25] MEDS: THIAMINE HCL 100 MG TABLET (FP) PO SCH (23:00)
[2019-03-26] MEDS: ONDANSETRON *ODT* 4 MG TABLET SL PRN (07:41)
[2019-03-26] MEDS ORDERED: METHADONE HCL 10 MG TABLET (FOR DETOX USE ONLY) PO ONE (10:00)
[2019-03-26] MEDS: PRENATAL VITAMINS W/ FOLIC ACID TABLET (FP) PO SCH (10:03)
[2019-03-26] MEDS: NICOTINE 14 MG/24 HOURS TOPICAL PATCH TD SCH (10:03)
--- NOTE | 2019-03-26 11:39 | PN ---
S COWS - Scale Resting Pulse: 0= [place] 80 or Below Sweatin= Chills/Flushing Restless Observation: 1= Difficult to Sit Still Pupil Size: 1= Pupils >than Normal Bone or Joint Aches: 2= Severe Diffuse Aches Runny Nose/ Eye Tearin= Nasal Congestion GI Upset > 30mins: 2= Nausea/Diarrhea Tremor Observation of Outstretched Hands: 2= Slight Tremor Visible Yawning Observation: 1= 1-2x During Session Anxiety or Irritability: 2=Irritable/Anxious Goose Flesh Skin: 3=Piloerection COWS Score: 16 S Progress Note (SOAP) Subjective: feeling better today tolerate food and fluid well mild nausea resting on bed encourage oral fluid Objective: 03/26/19 11:38 Vital Signs Temperature 98.9 F 03/26/19 09:13 Pulse Rate 55 L 03/26/19 09:13 Respiratory Rate 18 03/26/19 09:13 Blood Pressure 99/63 03/26/19 09:13 O2 Sat by Pulse Oximetry (%) Laboratory Last Values WBC 11.5 K/mm3 (4.0-10.0) H 03/25/19 07:45 RBC 5.07 M/mm3 (4.00-5.60) 03/25/19 07:45 Hgb 16.2 GM/dL (11.7-16.9) 03/25/19 07:45 Hct 48.1 % (35.4-49) 03/25/19 07:45 MCV 94.9 fl (80-96) 03/25/19 07:45 MCH 31.9 pg (25.7-33.7) 03/25/19 07:45 MCHC 33.7 g/dl (32.0-35.9) 03/25/19 07:45 RDW 13.6 % (11.9-15.9) 03/25/19 07:45 Plt Count 237 K/MM3 (134-434) 03/25/19 07:45 MPV 9.7 fl (7.5-11.1) 03/25/19 07:45 Sodium 140 mmol/L (136-145) 03/25/19 07:45 Potassium 3.8 mmol/L (3.5-5.1) 03/25/19 07:45 Chloride 104 mmol/L (98-107) 03/25/19 07:45 Carbon Dioxide 26 mmol/L (21-32) 03/25/19 07:45 Anion Gap 10 MMOL/L (8-16) 03/25/19 07:45 BUN 13 mg/dL (7-18) 03/25/19 07:45 Creatinine 0.7 mg/dL (0.55-1.3) 03/25/19 07:45 Est GFR (CKD-EPI)AfAm 147.81 03/25/19 07:45 Est GFR (CKD-EPI)NonAf 127.53 03/25/19 07:45 Random Glucose 92 mg/dL (74-106) 03/25/19 07:45 Calcium 9.7 mg/dL (8.5-10.1) 03/25/19 07:45 Total Bilirubin 1.4 mg/dL (0.2-1) H 03/25/19 07:45 AST 29 U/L (15-37) 03/25/19 07:45 ALT 24 U/L (13-61) 03/25/19 07:45 Alkaline Phosphatase 119 U/L (45-117) H 03/25/19 07:45 Total Protein 8.0 g/dl (6.4-8.2) 03/25/19 07:45 Albumin 4.3 g/dl (3.4-5.0) 03/25/19 07:45 RPR Titer Nonreactive (NONREACTIVE) 03/25/19 07:45 lab noted Assessment: 03/26/19 11:39 opiate withdrawal sx Plan: continue detox
[2019-03-26] MEDS: TRIAMCINOLONE ACET 0.1% CREAM 15 GM TUBE TP SCH ×2 (15:41→22:58)
[2019-03-26] MEDS: METHOCARBAMOL 500 MG TABLET PO PRN (22:58)
[2019-03-26] MEDS: THIAMINE HCL 100 MG TABLET (FP) PO SCH (22:58)
[2019-03-26] MEDS: hydrOXYzine PAMOATE 25 MG CAPSULE (FP) PO PRN (22:58)
[2019-03-26] MEDS: clonazePAM 0.5 MG TABLET PO PRN (22:58)
[2019-03-26] MEDS: MELATONIN 5 MG TABLETS PO PRN (22:58)
[2019-03-27] MEDS: TRIAMCINOLONE ACET 0.1% CREAM 15 GM TUBE TP SCH (06:47)
[2019-03-27] MEDS: clonazePAM 0.5 MG TABLET PO PRN (06:50)
[2019-03-27] MEDS: ONDANSETRON *ODT* 4 MG TABLET SL PRN (06:50)
[2019-03-27 09:16] VITALS: BP 99/65; PULSE 51; TEMP 98.4
[2019-03-27] MEDS ORDERED: METHADONE HCL 10 MG TABLET (FOR DETOX USE ONLY) PO ONE (10:00)
[2019-03-27] MEDS ORDERED: METHADONE HCL 5 MG TABLET (FOR DETOX USE ONLY) PO ONE (10:00)
--- NOTE | 2019-03-27 10:25 | PN ---
BHS COWS - Scale Resting Pulse: 0= [place] 80 or Below Sweatin= Chills/Flushing Restless Observation: 0= Sits Still Pupil Size: 1= Pupils >than Normal Bone or Joint Aches: 1= Mild Discomfort Runny Nose/ Eye Tearin= Nasal Congestion GI Upset > 30mins: 2= Nausea/Diarrhea Tremor Observation of Outstretched Hands: 2= Slight Tremor Visible Yawning Observation: 2= >3x During Session Anxiety or Irritability: 2=Irritable/Anxious Goose Flesh Skin: 0=Smooth Skin COWS Score: 12 S Progress Note (SOAP) Subjective: doing well with opiate detox regimen feeling ok today tolerate food and fluid well social with peers in hallway Objective: 03/27/19 10:25 Vital Signs Temperature 98.4 F 03/27/19 09:15 Pulse Rate 51 L 03/27/19 09:15 Respiratory Rate 18 03/27/19 09:15 Blood Pressure 99/65 03/27/19 09:15 O2 Sat by Pulse Oximetry (%) Laboratory Last Values WBC 11.5 K/mm3 (4.0-10.0) H 03/25/19 07:45 RBC 5.07 M/mm3 (4.00-5.60) 03/25/19 07:45 Hgb 16.2 GM/dL (11.7-16.9) 03/25/19 07:45 Hct 48.1 % (35.4-49) 03/25/19 07:45 MCV 94.9 fl (80-96) 03/25/19 07:45 MCH 31.9 pg (25.7-33.7) 03/25/19 07:45 MCHC 33.7 g/dl (32.0-35.9) 03/25/19 07:45 RDW 13.6 % (11.9-15.9) 03/25/19 07:45 Plt Count 237 K/MM3 (134-434) 03/25/19 07:45 MPV 9.7 fl (7.5-11.1) 03/25/19 07:45 Sodium 140 mmol/L (136-145) 03/25/19 07:45 Potassium 3.8 mmol/L (3.5-5.1) 03/25/19 07:45 Chloride 104 mmol/L (98-107) 03/25/19 07:45 Carbon Dioxide 26 mmol/L (21-32) 03/25/19 07:45 Anion Gap 10 MMOL/L (8-16) 03/25/19 07:45 BUN 13 mg/dL (7-18) 03/25/19 07:45 Creatinine 0.7 mg/dL (0.55-1.3) 03/25/19 07:45 Est GFR (CKD-EPI)AfAm 147.81 03/25/19 07:45 Est GFR (CKD-EPI)NonAf 127.53 03/25/19 07:45 Random Glucose 92 mg/dL (74-106) 03/25/19 07:45 Calcium 9.7 mg/dL (8.5-10.1) 03/25/19 07:45 Total Bilirubin 1.4 mg/dL (0.2-1) H 03/25/19 07:45 AST 29 U/L (15-37) 03/25/19 07:45 ALT 24 U/L (13-61) 03/25/19 07:45 Alkaline Phosphatase 119 U/L (45-117) H 03/25/19 07:45 Total Protein 8.0 g/dl (6.4-8.2) 03/25/19 07:45 Albumin 4.3 g/dl (3.4-5.0) 03/25/19 07:45 RPR Titer Nonreactive (NONREACTIVE) 03/25/19 07:45 lab noted Assessment: 03/27/19 10:25 opiate withdrawal sx Plan: continue detox
[2019-03-27] MEDS: NICOTINE 14 MG/24 HOURS TOPICAL PATCH TD SCH (10:46)
[2019-03-27] MEDS: PRENATAL VITAMINS W/ FOLIC ACID TABLET (FP) PO SCH (10:47)
[2019-03-27] MEDS: BISMUTH SUBSALICYLATE 524 MG/30 ML UD PO PRN (11:21)
--- NOTE | 2019-03-27 15:14 | DS ---
[facility] Detox Discharge Summary Admission Date: 03/25/19 Discharge Date: 03/27/19 - History Present History: Alcohol Dependence Additional Comments: 28 years old male admitted on 03/25/19 for opiate withdrawal stabilization requests methadone 60 mg for opiate detox discuss medication assisted maintenance treatment program patient agrees to attend methadone maintenance program near by his house Pertinent Past History: bring in medication list and lab report to follow up appointment - Physical Exam Results Vital Signs: Vital Signs Temperature 98.4 F 03/27/19 09:15 Pulse Rate 51 L 03/27/19 09:15 Respiratory Rate 18 03/27/19 09:15 Blood Pressure 99/65 03/27/19 09:15 O2 Sat by Pulse Oximetry (%) Pertinent Admission Physical Exam Findings: opiate withdrawal sx Laboratory Last Values WBC 11.5 K/mm3 (4.0-10.0) H 03/25/19 07:45 RBC 5.07 M/mm3 (4.00-5.60) 03/25/19 07:45 Hgb 16.2 GM/dL (11.7-16.9) 03/25/19 07:45 Hct 48.1 % (35.4-49) 03/25/19 07:45 MCV 94.9 fl (80-96) 03/25/19 07:45 MCH 31.9 pg (25.7-33.7) 03/25/19 07:45 MCHC 33.7 g/dl (32.0-35.9) 03/25/19 07:45 RDW 13.6 % (11.9-15.9) 03/25/19 07:45 Plt Count 237 K/MM3 (134-434) 03/25/19 07:45 MPV 9.7 fl (7.5-11.1) 03/25/19 07:45 Sodium 140 mmol/L (136-145) 03/25/19 07:45 Potassium 3.8 mmol/L (3.5-5.1) 03/25/19 07:45 Chloride 104 mmol/L (98-107) 03/25/19 07:45 Carbon Dioxide 26 mmol/L (21-32) 03/25/19 07:45 Anion Gap 10 MMOL/L (8-16) 03/25/19 07:45 BUN 13 mg/dL (7-18) 03/25/19 07:45 Creatinine 0.7 mg/dL (0.55-1.3) 03/25/19 07:45 Est GFR (CKD-EPI)AfAm 147.81 03/25/19 07:45 Est GFR (CKD-EPI)NonAf 127.53 03/25/19 07:45 Random Glucose 92 mg/dL (74-106) 03/25/19 07:45 Calcium 9.7 mg/dL (8.5-10.1) 03/25/19 07:45 Total Bilirubin 1.4 mg/dL (0.2-1) H 03/25/19 07:45 AST 29 U/L (15-37) 03/25/19 07:45 ALT 24 U/L (13-61) 03/25/19 07:45 Alkaline Phosphatase 119 U/L (45-117) H 03/25/19 07:45 Total Protein 8.0 g/dl (6.4-8.2) 03/25/19 07:45 Albumin 4.3 g/dl (3.4-5.0) 03/25/19 07:45 RPR Titer Nonreactive (NONREACTIVE) 03/25/19 07:45 lab noted - Treatment Hospital Course: Detox Protocol Followed, Responded well Patient has Accepted a Rehab Referral to: methadone maintenance program - Medication Discharge Medications: Ambulatory Orders NK [No Known Home Medication] 03/24/19 - Diagnosis (1) Opioid dependence with withdrawal Current Visit: Yes Status: Acute (2) Asthma Current Visit: Yes Status: Chronic Qualifiers: Asthma severity: mild Asthma persistence: intermittent Asthma complication type: unspecified Qualified Code(s): J45.20 - Mild intermittent asthma, uncomplicated (3) Nicotine dependence Current Visit: Yes Status: Acute Qualifiers: Nicotine product type: cigarettes Substance use status: in withdrawal Qualified Code(s): F17.213 - Nicotine dependence, cigarettes, with withdrawal - AMA Did Patient Leave Against Medical Advice: Yes
[2019-03-28] MEDS ORDERED: METHADONE HCL 10 MG TABLET (FOR DETOX USE ONLY) PO ONE (10:00)
[2019-03-29] MEDS ORDERED: METHADONE HCL 5 MG TABLET (FOR DETOX USE ONLY) PO ONE (06:00)
== END 2019-03-27 11:22 | disposition left against medical advice (07) | DRG 770 ==
LOC: YASAS 21:42 → Y3N 03-25 01:50
PROVIDERS: ADMIT Surgery; ATTEND Surgery
PROC: HZ2ZZZZ Detoxification Services for Substance Abuse Treatment (ICD-10-PCS; principal; 2019-03-25)
DX: F11.23 Opioid dependence with withdrawal (principal); F12.20 Cannabis dependence, uncomplicated; F17.213 Nicotine dependence, cigarettes, with withdrawal; F19.280 Other psychoactive substance dependence with psychoactive substance-induced anxiety disorder; F19.282 Other psychoactive substance dependence with psychoactive substance-induced sleep disorder; F31.9 Bipolar disorder, unspecified; F39 Unspecified mood [affective] disorder; F90.9 Attention-deficit hyperactivity disorder, unspecified type; J45.20 Mild intermittent asthma, uncomplicated; K29.70 Gastritis, unspecified, without bleeding
CPT/HCPCS: 36415; 80053; 85027; 86593; Q0162

== ENCOUNTER 2019-03-31 17:11 | Inpatient (IN) | payer SELFPAY ==
[2019-03-31 17:32] VITALS: BMI 20.3
--- NOTE | 2019-03-31 22:06 | HP ---
COWS - Scale Resting Pulse: 0= [place] 80 or Below Sweatin=Flushed/Facial Moisture Restless Observation: 1= Difficult to Sit Still Pupil Size: 0= Normal to Room Light Bone or Joint Aches: 4=Acute Joint/Muscle Pain Runny Nose/ Eye Tearin= Nasal Congestion GI Upset > 30mins: 0= None Tremor Observation: 0= None Yawning Observation: 0= None Anxiety or Irritability: 2=Irritable/Anxious Goose Flesh Skin: 3=Piloerection COWS Score: 13 CIWA Score - Admission Criteria OASAS Guidelines: Admission for Medically Managed Detox: Requires at least one of the followin. CIWA greater than 12 2. Seizures within the past 24 hours 3. Delirium tremens within the past 24 hours 4. Hallucinations within the past 24 hours 5. Acute intervention needed for co occurring medical disorder 6. Acute intervention needed for co occurring psychiatric disorder 7. Severe withdrawal that cannot be handled at a lower level of care (continued vomiting, continued diarrhea, abnormal vital signs) requiring intravenous medication and/or fluids 8. Admission [facility] [place] [facility] Chief Complaint: C/O WORSENING WITHDRAWAL SX'S. SEEKING DETOX Allergies/Adverse Reactions: Allergies Allergy/AdvReac Type Severity Reaction Status Date / Time No Known Allergies Allergy Verified 03/30/19 19:12 History of Present Illness: 28. Y.O MALE WITH OPIOID DEPENDENCE HERE FOR DETOX AFTER SIGNING OUT 4 DAYS AGO. PRESENTS WITH C/O WITHDRAWAL SX'S. COWS 13. HE IS IVDA REPORTS USING ABOUT 20 BAGS DAILY. LAST USE EARLIER TODAY TO EASE WITHDRAWAL SX'S. DENIES ANY SIGNIFICANT PERIOD OF CLEAN TIME. HE ALSO REPORTS ILLICIT SUBSTANCE ABUSE OF THC. CRYSTAL METH, . HOMELESS, UNEMPLOYED, DENIES LEGALS CASE D/W DR. AVENDANO.-ADMIT Exam Limitations: No Limitations - Ebola screening Have you traveled outside of the country in the last 21 days: No (N) Have you had contact with anyone from an Ebola affected area: No Do you have a fever: No - Review of Systems Constitutional: Chills, Loss of Appetite, Malaise, Night Sweats, Changes in sleep, Unintentional Wgt. Loss EENT: reports: Nose Congestion, Dental Problems (CARIES) Respiratory: reports: No Symptoms reported Cardiac: reports: No Symptoms Reported GI: reports: Nausea, Poor Appetite, Poor Fluid Intake : reports: Other (HESITANCY) Musculoskeletal: reports: Joint Pain Integumentary: reports: Flushing, Sweating Neuro: reports: No Symptoms reported Endocrine: reports: No Symptoms Reported Hematology: reports: No Symptoms Reported Psychiatric: reports: Orientated x3, Agitated, Anxious, Depressed (DENIES SI/HI) Other Systems: Reviewed and Negative Patient History - Patient Medical History Hx Anemia: No Hx Asthma: Yes (Not on medication) Hx Chronic Obstructive Pulmonary Disease (COPD): No Hx Cancer: No Hx Cardiac Disorders: No Hx Congestive Heart Failure: No Hx Hypertension: No Hx Hypercholesterolemia: No Hx Pacemaker: No HX Cerebrovascular Accident: No Hx Seizures: No Hx Dementia: No Hx Diabetes: No Hx Gastrointestinal Disorders: Yes (Gastritis - Not on medication) Hx Liver Disease: No Hx Genitourinary Disorders: No Hx Sexually Transmitted Disorders: No Hx Renal Disease (ESRD): No Hx Thyroid Disease: No Hx Human Immunodeficiency Virus (HIV): No (NEGATIVE 2017) Hx Hepatitis C: No Hx Depression: Yes (Not on medicvation) Hx Suicide Attempt: No Hx Bipolar Disorder: Yes Hx Schizophrenia: No - Patient Surgical History Past Surgical History: Yes Hx Neurologic Surgery: No Hx Cataract Extraction: No Hx Cardiac Surgery: No Hx Lung Surgery: No Hx Breast Surgery: No Hx Breast Biopsy: No Hx Abdominal Surgery: No Hx Appendectomy: Yes ([place] 12/2013) Hx Cholecystectomy: No Hx Genitourinary Surgery: No Hx Section: No Hx Orthopedic Surgery: No Anesthesia Reaction: No - PPD History Previous Implant?: Yes Documented Results: Negative w/proof Implanted On Prior [facility] Admission?: Yes Date: 09/01/18 Results: 0 MM PPD to be Administered?: No - Smoking Cessation Smoking history: Current every day smoker Have you smoked in the past 12 months: Yes Aproximately how many cigarettes per day: 10 Cigars Per Day: 0 Hx Chewing Tobacco Use: No Initiated information on smoking cessation: Yes 'Breaking Loose' booklet given: 03/31/19 - Substance & Tx. History Hx Alcohol Use: No Hx Substance Use: Yes Substance Use Type: Heroin, Marijuana Hx Substance Use Treatment: Yes ([facility]) - Substances abused Heroin Substance route: Injection Frequency: Daily Amount used: 20 bags/day Age of first use: 19 Date of last use: 03/31/19 Marijuana/Hashish Substance route: Oral Frequency: 1-2 times per week Amount used: 1 JOINT Age of first use: 14 Date of last use: 03/24/19 Family Disease History - Family Disease History Family Disease History: Respiratory: Grandparent, Other: Father (living, arthritis), Mother (living, thyroid) Admission Physical Exam [facility] - Vital Signs Vital Signs: Vital Signs - 24 hr 03/31/19 03/31/19 17:23 21:16 Temperature 98 F 98 F Pulse Rate 80 80 Respiratory 18 18 Rate Blood Pressure 99/66 99/66 - Physical General Appearance: Yes: Appropriately Dressed, Disheveled, Mild Distress, Irritable, Sweating, Anxious HEENTM: Yes: EOMI, Normocephalic, Normal Voice, EL, Pharynx Normal, Nasal Congestion Respiratory: Yes: Chest Non-Tender, Lungs Clear, Normal Breath Sounds, No Respiratory Distress, No Accessory Muscle Use Neck: Yes: No masses,lesions,Nodules, Supple, Trachea in good position Breast: Yes: Breast Exam Deferred Cardiology: Yes: Regular Rhythm, Regular Rate, S1, S2 Abdominal: Yes: Non Tender, Soft, Increased Bowel Sounds Genitourinary: Yes: Within Normal Limits Back: Yes: Normal Inspection Musculoskeletal: Yes: full range of Motion, Gait Steady Extremities: Yes: Normal Capillary Refill, Normal Range of Motion, Non-Tender Neurological: Yes: Fully Oriented, Alert, Motor Strength 5/5, Depressed Affect Integumentary: Yes: Dry, Warm, Track Triplett, Other (SCATTERED HPYERPIGMENTATED SPOTS FROM OLD SCARS DUE TO FORMICATION TO TRUNKS AND ARMS) Lymphatic: Yes: Within Normal Limits - Diagnostic (1) Homeless Current Visit: Yes Status: Acute (2) At risk for dehydration due to poor fluid intake Current Visit: Yes Status: Acute (3) Cannabis dependence, uncomplicated Current Visit: Yes Status: Acute (4) Nicotine dependence Current Visit: Yes Status: Chronic Qualifiers: Nicotine product type: cigarettes Substance use status: in withdrawal Qualified Code(s): F17.213 - Nicotine dependence, cigarettes, with withdrawal Comment: counseled nicotine cessation - not ready but is trying to cut down (5) Opioid dependence with withdrawal Current Visit: Yes Status: Acute (6) Substance-induced anxiety disorder Current Visit: Yes Status: Acute (7) Substance-induced sleep disorder Current Visit: Yes Status: Acute (8) Asthma Current Visit: Yes Status: Chronic Qualifiers: Asthma severity: mild Asthma persistence: intermittent Asthma complication type: unspecified Qualified Code(s): J45.20 - Mild intermittent asthma, uncomplicated (9) Depression Current Visit: Yes Status: Chronic Qualifiers: Depression Type: dysthymia Qualified Code(s): F34.1 - Dysthymic disorder (10) Gastritis Current Visit: Yes Status: Chronic (11) Mood disorder Current Visit: Yes Status: Suspected (12) Bipolar disorder Current Visit: Yes Status: Suspected Cleared for Admission [facility] - Detox or Rehab [facility] Level of Care: Medically Managed Detox Regimen/Protocol: Methadone Claeared for Rehab Admission: No Breathalyzer - Breathalyzer Breathalyzer: 0 Urine Drug Screen - Test Device Lot number: [id number] Expiration date: 12/08/20 - Control Is test valid?: Yes - Results Drug screen NEGATIVE: No Urine drug screen results: THC-Marijuana, MET-Methamphetamine, FEN-Fentanyl, MOP -Opiates, OXY-Oxycodone Inpatient Rehab Admission - Rehab Decision to Admit Inpatient rehab admission?: No
[2019-03-31] MEDS ORDERED: guaiFENesin 200 MG/10 ML 10 ML UNIT-DOSE CUPS PO PRN (22:07)
[2019-03-31] MEDS ORDERED: ONDANSETRON *ODT* 4 MG TABLET SL PRN (22:07)
[2019-03-31] MEDS ORDERED: IBUPROFEN 400 MG TABLET (FP) PO PRN ×2 (22:07)
[2019-03-31] MEDS ORDERED: P-EPHED 60MG/TRIPROLIDI 2.5MG TABLET PO PRN (22:07)
[2019-03-31] MEDS ORDERED: MELATONIN 5 MG TABLETS PO PRN (22:07)
[2019-03-31] MEDS ORDERED: METHOCARBAMOL 500 MG TABLET PO PRN (22:07)
[2019-03-31] MEDS ORDERED: MAGNESIUM CITRATE 300 ML BOTTLE PO PRN (22:07)
[2019-03-31] MEDS ORDERED: NALOXONE HCL 0.4 MG/ML VIAL IVPUSH PRN (22:07)
[2019-03-31] MEDS ORDERED: MAG HYDROX/AL HYDROX/SIMETH 30 ML UNIT-DOSE CUP PO PRN (22:07)
[2019-03-31] MEDS ORDERED: MENTHOL/PHENOL 1 EACH UD MM PRN (22:07)
[2019-03-31] MEDS ORDERED: hydrOXYzine PAMOATE 50 MG CAPSULE (FP) PO PRN (22:07)
[2019-03-31] MEDS ORDERED: MAGNESIUM HYDROX 2400MG/30ML ORAL SUSPENSION 30 ML CUP PO PRN (22:07)
[2019-03-31] MEDS ORDERED: NICOTINE POLACRILEX 2 MG GUM BUC PRN (22:07)
[2019-03-31] MEDS ORDERED: BISMUTH SUBSALICYLATE 524 MG/30 ML UD PO PRN (22:07)
[2019-03-31] MEDS ORDERED: ACETAMINOPHEN 325 MG TABLET (FP) PO PRN ×2 (22:07)
[2019-03-31] MEDS ORDERED: cloNIDine HCL 0.1 MG TABLET PO PRN (22:07)
[2019-03-31] MEDS ORDERED: METHADONE HCL 10 MG TABLET (FOR DETOX USE ONLY) PO ONE (23:00)
[2019-04-01] MEDS ORDERED: NICOTINE 14 MG/24 HOURS TOPICAL PATCH TD SCH (10:00)
[2019-04-01] MEDS ORDERED: METHADONE HCL 10 MG TABLET (FOR DETOX USE ONLY) PO ONE (10:00)
[2019-04-01] MEDS ORDERED: PRENATAL VITAMINS W/ FOLIC ACID TABLET (FP) PO SCH (10:00)
--- NOTE | 2019-04-01 10:19 | CONSULT ---
[facility] Psychiatric Consult - Data Date of interview: 04/01/19 Admission source: [facility] Identifying data: This is one of multiple admissions to [facility] for this 28 y/ o male self-referred for detoxification (heroin, benzodiazepine, cannabis/K2). Examined at [address] [place] [address]. Patient is single, no children, homeless, unemployed and deprived of financial assistance. Substance Abuse History: Confirmed by patient. Details in current [facility] report : Smoking history: Current every day smoker. Have you smoked in the past 12 months: Yes. Aproximately how many cigarettes per day: 10. Cigars Per Day: 0. Hx Chewing Tobacco Use: No. Initiated information on smoking cessation: Yes. 'Breaking Loose' booklet given: 03/31/19. - Substance & Tx. History. Hx Alcohol Use: No. Hx Substance Use: Yes. Substance Use Type: Heroin, Marijuana. Hx Substance Use Treatment: Yes ([facility]). - Substances abused. Heroin. Substance route: Injection. Frequency: Daily. Amount used: 20 bags/ day. Age of first use: 19. Date of last use: 03/31/19. Marijuana/Hashish. Substance route: Oral. Frequency: 1-2 times per week. Amount used: 1 JOINT. Age of first use: 14. Date of last use: 03/24/19 Medical History: Significant for bronchial asthma, gastritis and history of appendectomy in 2013. Psychiatric History: No reported history of psychiatric hospitalizations. Patient denies having received any diagnosis of psychiatric illness. However, records at [facility] indicate diagnoses of " ADHD and OCD " during chidhood and past treatment with psychostimulants. Diagnosis was later revised to Bipolar Disorder (2013) and addressed with seroquel. PAtient got medicated with mirtazapine + buspirone during a recent incarceration at the [facility] in [facility]. Patient denies history of suicide attempts. Physical/Sexual Abuse/Trauma History: No reported history of abuse. Stressor : legal problems : patient informs that there is a warrant for his arrest for violation of a court mandate for substance abuse treatment + failure to keep his court date. Additional Comment: Urine drug screen results: THC-Marijuana, MET- Methamphetamine, FEN-Fentanyl, MOP-Opiates, OXY-Oxycodone. Noted. Mental Status Exam - Mental Status Exam Alert and Oriented to: Time, Place, Person Cognitive Function: Good Patient Appearance: Unkempt, Disheveled Mood: Nervous, Withdrawn, Anxious Affect: Mood Congruent, Constricted Patient Behavior: Fatigued, Cooperative Speech Pattern: Clear Voice Loudness: Normal Thought Process: Goal Oriented Thought Disorder: Not Present Hallucinations: Denies Suicidal Ideation: Denies Homicidal Ideation: Denies Insight/Judgement: Poor Sleep: Poorly, Difficulty falling asleep Appetite: Good Muscle strength/Tone: Normal Gait/Station: Normal Psychiatric Findings - Problem List ([place] 1, 2,3) (1) Opioid dependence with withdrawal Current Visit: Yes Status: Acute (2) Cannabis dependence, uncomplicated Current Visit: Yes Status: Chronic (3) Nicotine dependence Current Visit: Yes Status: Chronic Qualifiers: Nicotine product type: cigarettes Substance use status: in withdrawal Qualified Code(s): F17.213 - Nicotine dependence, cigarettes, with withdrawal Comment: counseled nicotine cessation - not ready but is trying to cut down (4) Substance induced mood disorder Current Visit: Yes Status: Chronic (5) Non-compliance Current Visit: Yes Status: Chronic - Initial Treatment Plan Initial Treatment Plan: Psychoeducation. Sleep hygiene. Detoxification. Remeron 15 mg po hs (patient's request). Side effects/benefits discussed with patient. Agrees with plan. Observation.
--- NOTE | 2019-04-01 12:18 | PN ---
[facility] COWS - Scale Resting Pulse: 1= [place] 81-100 Sweatin= Chills/Flushing Restless Observation: 1= Difficult to Sit Still Pupil Size: 0= Normal to Room Light Bone or Joint Aches: 2= Severe Diffuse Aches Runny Nose/ Eye Tearin= Nasal Congestion GI Upset > 30mins: 1= Stomach Cramp Tremor Observation of Outstretched Hands: 1= Tremor [place], Not Seen Yawning Observation: 0= None Anxiety or Irritability: 2=Irritable/Anxious Goose Flesh Skin: 0=Smooth Skin COWS Score: 10 [facility] Progress Note (SOAP) Subjective: Sweats, tremors,nausea and body aches Objective: 04/01/19 12:17 Last Vital Signs Temp Pulse Resp BP Pulse Ox 97.8 F 61 18 95/60 04/01/19 09:43 04/01/19 09:43 04/01/19 09:43 04/01/19 09:43 Labs pending Assessment: 04/01/19 12:18 Withdrawal sx Plan: Continue detox
--- NOTE | 2019-04-01 17:36 | PN ---
[facility] Progress Note Note: withdrawal symptom will add valium 10 mgs po q 4 hrs prn to regimen
[2019-04-01] MEDS: diazePAM 5 MG TABLET PO PRN ×2 (18:04→21:45)
[2019-04-01] MEDS ORDERED: MIRTAZAPINE 15 MG TABLET (FP) PO SCH (22:00)
[2019-04-01] MEDS ORDERED: THIAMINE HCL 100 MG TABLET (FP) PO SCH (22:00)
[2019-04-02] MEDS: diazePAM 5 MG TABLET PO PRN (06:53)
[2019-04-02] MEDS ORDERED: METHADONE HCL 5 MG TABLET (FOR DETOX USE ONLY) PO ONE ×2 (08:24→10:00)
--- NOTE | 2019-04-02 09:08 | DS ---
[facility] Detox Discharge Summary Admission Date: 03/31/19 Discharge Date: 04/02/19 - History Present History: Opioid Dependence Additional Comments: 28 years old male admitted on 03/31/19 for opiate withdrawal stabilization requests methadone isiah to be administered around 7 am medication window been damaged nursing shipping track supervisor and security and adjusto writer operator met with the patient that violent behavior is not acceptable patient agrees free of aggressive violent f change the methadone time from 10 am to 7 am discuss with the patient that methadone time had been changed nursing shipping track supervisor and security left the unit patient refuses to wait for methadone verification from pharmacy threatening staff, aggressive abusive language toward staff, violent toward property, destroy objects in room 911 called maintaining the safety and therapeutic environment urgent discharged is necessary at this time - Physical Exam Results Vital Signs: Vital Signs Temperature 97.2 F L 04/02/19 06:57 Pulse Rate 53 L 04/02/19 06:57 Respiratory Rate 18 04/02/19 06:57 Blood Pressure 100/70 04/02/19 06:57 O2 Sat by Pulse Oximetry (%) Pertinent Admission Physical Exam Findings: opiate withdrawal sx Vital Signs Temperature 97.2 F L 04/02/19 06:57 Pulse Rate 53 L 04/02/19 06:57 Respiratory Rate 18 04/02/19 06:57 Blood Pressure 100/70 04/02/19 06:57 O2 Sat by Pulse Oximetry (%) lab see 03/2019 blood results - Treatment Hospital Course: Detox Protocol Followed, Responded well Patient has Accepted a Rehab Referral to: encourage medication assisted maintenance treatment program - Medication Discharge Medications: Ambulatory Orders NK [No Known Home Medication] 03/24/19 - Diagnosis (1) Opioid dependence with withdrawal Current Visit: Yes Status: Acute (2) Nicotine dependence Current Visit: Yes Status: Acute Qualifiers: Nicotine product type: cigarettes Substance use status: in withdrawal Qualified Code(s): F17.213 - Nicotine dependence, cigarettes, with withdrawal (3) Substance induced mood disorder Current Visit: Yes Status: Suspected - AMA Did Patient Leave Against Medical Advice: No
[2019-04-02 09:23] VITALS: BP 115/80; PULSE 77; TEMP 97.9
[2019-04-03] MEDS ORDERED: METHADONE HCL 10 MG TABLET (FOR DETOX USE ONLY) PO ONE ×2 (07:00→10:00)
[2019-04-04] MEDS ORDERED: METHADONE HCL 5 MG TABLET (FOR DETOX USE ONLY) PO ONE (06:00)
== END 2019-04-02 08:52 | disposition home or self-care (01) | DRG 773 ==
LOC: YASAS 17:11 → Y3N 22:15
PROVIDERS: ADMIT Surgery; ATTEND Surgery
PROC: HZ2ZZZZ Detoxification Services for Substance Abuse Treatment (ICD-10-PCS; principal; 2019-03-31)
DX: F11.23 Opioid dependence with withdrawal (principal); F12.20 Cannabis dependence, uncomplicated; F17.213 Nicotine dependence, cigarettes, with withdrawal; F19.24 Other psychoactive substance dependence with psychoactive substance-induced mood disorder; Z91.19 Patient's noncompliance with other medical treatment and regimen